=== PATIENT | male | born 1985 | race Caucasian/White ===

== ENCOUNTER 2016-07-19 09:58 | Emergency (ER) | payer OTHER ==
[2016-07-19 10:15] VITALS: BP 149/81
== END 2016-07-19 11:24 | disposition left against medical advice (07) ==
LOC: UCCORT 09:58
DX: R09.81 Nasal congestion (principal); Z53.21 Procedure and treatment not carried out due to patient leaving prior to being seen by health care provider

== ENCOUNTER 2016-07-19 15:27 | Emergency (ER) | payer OTHER ==
[2016-07-19 17:42] VITALS: BP 132/72
--- NOTE | 2016-07-19 18:20 | UC ---
Throat Pain/Nasal Jace HPI - HPI Summary HPI Summary: complaint of nasal congestion and cough that started 2 weeks ago productive cough frequent sinus pressure and headaches pain in his left ear denies sore throat fever and chills took some aleve and sudafed withoutnrelief - History of Current Complaint Chief Complaint: UCGeneralIllness Stated Complaint: COUGH,LUNGS Time Seen by Provider: 07/19/16 18:14 Hx Obtained From: Patient - Allergies/Home Medications Allergies/Adverse Reactions: Allergies Allergy/AdvReac Type Severity Reaction Status Date / Time Metoclopramide [From Reglan] Allergy Intermediate Itching Verified 07/19/16 17: 42 PMH/Surg Hx/FS Hx/Imm Hx Previously Healthy: Yes - Surgical History Surgical History: Yes Surgery Procedure, Year, and Place: appy - Family History Known Family History: Negative: Cardiac Disease, Hypertension, Diabetes - Social History Occupation: Employed Full-time Lives: With Family Alcohol Use: Occasionally Substance Use Type: None Smoking Status (MU): Heavy Every Day Tobacco Smoker Type: Cigarettes Amount Used/How Often: 1 PPD Length of Time of Smoking/Using Tobacco: 15 years Review of Systems Constitutional: Negative Skin: Negative Eyes: Negative ENT: Nasal Discharge Respiratory: Cough Cardiovascular: Negative Gastrointestinal: Negative Genitourinary: Negative Motor: Negative Neurovascular: Negative Musculoskeletal: Negative Neurological: Headache Psychological: Negative All Other Systems Reviewed And Are Negative: Yes Physical Exam Triage Information Reviewed: Yes Appearance: Well-Appearing, No Pain Distress, Well-Nourished Vital Signs: Initial Vital Signs Temp 98.6 F 07/19/16 17:36 Pulse 83 07/19/16 17:36 Resp 16 07/19/16 17:36 BP 132/72 07/19/16 17:36 Pulse Ox 100 07/19/16 17:36 Vital Signs Reviewed: Yes Eyes: Positive: Conjunctiva Clear ENT: Positive: Pharyngeal erythema, Nasal congestion, Nasal drainage, TM bulging , Other: - frontal and maxillary sinus tenderness. Negative: TM red Neck: Positive: No Lymphadenopathy Respiratory: Positive: Lungs clear, Normal breath sounds, No respiratory distress, No accessory muscle use Cardiovascular: Positive: RRR, No Murmur, Pulses Normal Abdomen Description: Positive: Nontender, Soft Bowel Sounds: Positive: Present Musculoskeletal Exam: Normal Neurological: Positive: Alert Psychological Exam: Normal Skin Exam: Normal Throat Pain/Nasal Course/Dx - Differential Dx/Diagnosis Differential Diagnosis/HQI/PQRI: Otitis Media, Sinusitis Provider Diagnoses: sinusitis Discharge - Discharge Plan Condition: Stable Disposition: HOME Prescriptions: Clarithromycin TAB* [Biaxin 500 MG TAB*] 500 mg PO BID #20 tab Patient Education Materials: Sinusitis (ED) Referrals: Reid Singh MD [Primary Care Provider] - Additional Instructions: SINUSITIS What is Sinusitis? Sinusitis is inflammation or infection of the lining of the sinuses behind the bones in your cheeks or forehead. Sinusitis may occur following a common cold, flu, or other infection; allergies; a tooth infection that spreads to the sinuses; swimming in contaminated water; pressure changes in airplanes at high altitudes; violent sneezing or nose blowing or smoking or breathing other peoples smoke. Symptoms Might Include: Nasal Congestion Sneezing Watery eyes, eye irritation, or eye itching Headaches Pressure in the cheeks Wheezing Trouble smelling Sore throat and coughing may occur Treatment Recommendations: Take medicines as prescribed until completely gone. Drink plenty of fluids. Use saline nose spray to thin the mucous and help the sinuses drain. Use a vaporizer or humidifier. Apply warm compresses to the face or forehead several times a day for 10 to 20 minutes. Call Your Doctor or Return Here IF: Your pain increases during treatment. You develop a high temperature. You develop unusual swelling around the eyes. You have difficulty with your vision. You develop a severe headache, earache, or toothache. You develop increased fever or fever that does not respond to medication such as Tylenol?. You have difficulty breathing or catching your breath. You begin to have any other new symptoms that worry you. Your blood pressure is pre-hypertensive reading. Please contact your primary care provider within 1 day -4 weeks for further evaluation
[2016-07-19] MEDS ORDERED: Clarithromycin TAB* 500 MG PO ONE (18:27)
== END 2016-07-19 18:32 | disposition home or self-care (01) ==
LOC: UCCORT 15:27
DX: J32.9 Chronic sinusitis, unspecified (principal); Z88.8 Allergy status to other drugs, medicaments and biological substances; F17.210 Nicotine dependence, cigarettes, uncomplicated
CPT/HCPCS: 99212; A9270-GY; G0463

== ENCOUNTER 2017-01-03 11:10 | Emergency (ER) | payer OTHER ==
[2017-01-03 11:47] VITALS: BP 146/65
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
--- NOTE | 2017-01-03 13:17 | RAD ---
INDICATION: Trauma. COMPARISON: None. TECHNIQUE: 4 views of the right hand and 3 views of the right wrist were obtained. FINDINGS: The adequately corticated bones are in normal alignment. No significant focal osseous abnormality or fracture is seen. Joint spaces appear maintained. IMPRESSION: No radiographically apparent fracture of the right hand or wrist. If the patient's symptoms persist further imaging is advised.
== END 2017-01-03 13:30 | disposition home or self-care (01) ==
LOC: UCEAST 11:10
DX: M79.641 Pain in right hand (principal); F17.210 Nicotine dependence, cigarettes, uncomplicated; M79.89 Other specified soft tissue disorders
CPT/HCPCS: 99213; G0463

== ENCOUNTER 2017-03-25 22:44 | Emergency (ER) | payer OTHER ==
[2017-03-26 00:45] LABS: ABS Basophils 0 10^3/ul (0-0.2); ABS Eosinophils 0.2 10^3/ul (0-0.6); ABS Lymphocytes 2.3 10^3/ul (1.0-4.8); ABS Monocytes 0.8 10^3/ul (0-0.8); ABS Neutrophils 3.7 10^3/ul (1.5-7.7); ABS Nucleated RBC 0 10^3/ul; Hematocrit 46 % (42-52); Hemoglobin 15.8 g/dl (14.0-18.0); Lymphocyte % 32.4 % (25-47); Mean Corpuscular HGB Conc 34 g/dl (31-36); Mean Corpuscular Hemoglobin 32 pg (27-31); Mean Corpuscular Volume 94 fL (80-94); Mean Platelet Volume 8 um3 (7.4-10.4); Nucleated Red Blood Cells % 0; Platelet Count 245 10^3/ul (150-450); Red Cell Distribution Width 14 % (10.5-15)
[2017-03-26] MEDS ORDERED: Mouth Piece, Nicotine* 1 EACH CARTRIDGE ONE (01:22)
[2017-03-26] MEDS ORDERED: Mouth Piece, Nicotine* 1 EACH CARTRIDGE INH PRN ×2 (01:22)
[2017-03-26] MEDS ORDERED: Nicotine Inhaler* 10 MG AMP INH PRN (01:22)
[2017-03-26] MEDS ORDERED: Nicotine Inhaler* 10 MG AMP ONE (01:22)
[2017-03-26 02:16] LABS: Urine Appearance Clear; Urine Color Straw
[2017-03-26 02:18] LABS: Urine Ketones Negative (Negative); Urine Protein N (Negative); Urine Urobilinogen Negative (Negative)
[2017-03-26 02:19] LABS: Urine Blood N (Negative)
--- NOTE | 2017-03-26 02:21 | ED ---
Psychiatric Complaint - HPI Summary HPI Summary: Patient presents to the ED with ETOH intox and thoughts of suicide. Denies HI or self harm. Endorses marijuana use. Pt to ED via police on from home d/ t suicidal ideation stating that pt left home with 2 long rifles. pt was distraught upon arrival stating that his "girlfriend told him she was leaving him and he would no longer be allowed to participate in the kids lives" pt states that he has raised the children but is not the biological father and has no rights to the children. pt is tearful and states that he was suicidal. pt was provided with paper scrubs. pt requested to speak with the Denn[facility]. Francisco with spiritual care was phoned and did come in to speak with pt. pt states that he felt a lot better after talking to francisco. pt was provided with a sandwich and drink. Denies any pain including chest pain and SOB. - History Of Current Complaint Chief Complaint: EDMentalHealth Time Seen by Provider: 03/25/17 23:02 Hx Obtained From: Patient Onset/Duration: Gradual Onset Timing: Constant Severity Initially: Moderate Severity Currently: Moderate Character: Depressed Aggravating Factor(s): Recent Stress, Alcohol Use Alleviating Factor(s): Nothing Associated Signs And Symptoms: Positive: Negative - Risk Factor(s) Completed Suicide Risk Factors: Male, White Egyptian - Allergies/Home Medications Allergies/Adverse Reactions: Allergies Allergy/AdvReac Type Severity Reaction Status Date / Time Metoclopramide [From Reglan] Allergy Intermediate Itching Verified 01/03/17 11: 41 PMH/Surg Hx/FS Hx/Imm Hx Previously Healthy: Yes - Surgical History Surgery Procedure, Year, and Place: appy - Immunization History Hx Pertussis Vaccination: No Immunizations Up to Date: Unable to Obtain/Confirm Infectious Disease History: No Infectious Disease History: Reports: Hx Hepatitis - Hep-c: states no longer has Denies: Traveled Outside the [place] in Last 30 Days - Family History Known Family History: Negative: Cardiac Disease, Hypertension, Diabetes - Social History Occupation: Employed Full-time Lives: With Family Alcohol Use: Occasionally Hx Substance Use: No Substance Use Type: Reports: None Hx Tobacco Use: Yes Smoking Status (MU): Heavy Every Day Tobacco Smoker Type: Cigarettes Amount Used/How Often: 1 PPD Length of Time of Smoking/Using Tobacco: 15 years Review of Systems Constitutional: Negative Negative: Fever, Chills, Fatigue Eyes: Negative ENT: Negative Respiratory: Negative Gastrointestinal: Negative Positive: no symptoms reported, see HPI Musculoskeletal: Negative Neurological: Negative Positive: Depressed All Other Systems Reviewed And Are Negative: Yes Physical Exam Triage Information Reviewed: Yes Vital Signs On Initial Exam: Initial Vitals Temp Pulse Resp BP Pulse Ox 97.6 F 74 16 148/109 99 03/25/17 22:52 03/25/17 22:52 03/25/17 22:52 03/25/17 22:52 03/25/17 22:52 Vital Signs Reviewed: Yes Appearance: Positive: Well-Appearing, Well-Nourished Skin: Positive: Warm, Skin Color Reflects Adequate Perfusion Head/Face: Positive: Normal Head/Face Inspection Eyes: Positive: EOMI, IVONNE, Conjunctiva Clear Neck: Positive: Supple, No Lymphadenopathy Respiratory/Lung Sounds: Positive: Clear to Auscultation, Breath Sounds Present Cardiovascular: Positive: RRR, Pulses are Symmetrical in both Upper and Lower Extremities Musculoskeletal: Positive: Strength/ROM Intact Neurological: Positive: Normal, Sensory/Motor Intact, Speech Normal Psychiatric: Positive: Depressed - Dorys Coma Scale Coma Scale Total: 15 Diagnostics - Vital Signs Vital Signs Temp Pulse Resp BP Pulse Ox 03/25/17 22:52 97.6 F 74 16 148/109 99 - Laboratory Lab Results: Lab Results 03/25/17 03/25/17 03/25/17 Range/Units 23:19 23:19 23:38 WBC (3.5-10.8) 10^3/ul RBC (4.0-5.4) 10^6/ul Hgb (14.0-18.0) g/dl Hct (42-52) % MCV (80-94) fL MCH (27-31) pg MCHC (31-36) g/dl RDW (10.5-15) % Plt Count (150-450) 10^3/ul MPV (7.4-10.4) um3 Neut % (Auto) (38-83) % Lymph % (Auto) (25-47) % [place] % (Auto) (1-9) % Eos % (Auto) (0-6) % Baso % (Auto) (0-2) % Absolute Neuts (auto) (1.5-7.7) 10^3/ul Absolute Lymphs (auto) (1.0-4.8) 10^3/ul Absolute Monos (auto) (0-0.8) 10^3/ul Absolute Eos (auto) (0-0.6) 10^3/ul Absolute Basos (auto) (0-0.2) 10^3/ul Absolute Nucleated RBC 10^3/ul Nucleated RBC % Sodium 137 (133-145) mmol/L Potassium 4.0 (3.5-5.0) mmol/L Chloride 106 (101-111) mmol/L Carbon Dioxide 22 (22-32) mmol/L Anion Gap 9 (2-11) mmol/L BUN 20 (6-24) mg/dL Creatinine 0.91 (0.67-1.17) mg/dL Est GFR ( Amer) 123.4 (>60) Est GFR (Non-Af Amer) 96.0 (>60) BUN/Creatinine Ratio 22.0 H (8-20) Glucose 102 H (70-100) mg/dL Calcium 9.6 (8.6-10.3) mg/dL Total Bilirubin 0.30 (0.2-1.0) mg/dL AST 21 (13-39) U/L ALT 17 (7-52) U/L Alkaline Phosphatase 46 (34-104) U/L Total Protein 8.0 (6.4-8.9) g/dL Albumin 4.9 (3.2-5.2) g/dL Globulin 3.1 (2-4) g/dL Albumin/Globulin Ratio 1.6 (1-3) TSH 2.32 (0.34-5.60) mcIU/mL Urine Color Straw Urine Appearance Clear Urine pH 5 (5-9) Ur Specific [place] 1.000 L (1.010-1.030) Urine Protein N (Negative) Urine Ketones Negative (Negative) Urine Blood N (Negative) Urine Nitrate N (Negative) Urine Bilirubin Negative (Negative) Urine Urobilinogen Negative (Negative) Ur Leukocyte Esterase Negative (Negative) Urine WBC (Auto) Trace(0-5/hpf) (Absent) Urine RBC (Auto) Trace(0-2/hpf) (Absent) Urine Bacteria Absent (Absent) Urine Glucose N (Negative) Urine Ascorbic Acid N (Negative) Salicylates < 2.50 (<30) mg/dL Urine Opiates Screen None detected (None Detect) Acetaminophen < 15 mcg/mL Ur Barbiturates Screen None detected (None Detect) Ur Phencyclidine Scrn None detected (None Detect) Ur Amphetamines Screen None detected (None Detect) U Benzodiazepines Scrn None detected (None Detect) Urine Cocaine Screen None detected (None Detect) U Cannabinoids Screen Presumptive positive H (None Detect) Serum Alcohol 233 H (<10) mg/dL 03/25/17 Range/Units 23:38 WBC 7.0 (3.5-10.8) 10^3/ul RBC 4.90 (4.0-5.4) 10^6/ul Hgb 15.8 (14.0-18.0) g/dl Hct 46 (42-52) % MCV 94 (80-94) fL MCH 32 H (27-31) pg MCHC 34 (31-36) g/dl RDW 14 (10.5-15) % Plt Count 245 (150-450) 10^3/ul MPV 8 (7.4-10.4) um3 Neut % (Auto) 52.8 (38-83) % Lymph % (Auto) 32.4 (25-47) % [place] % (Auto) 11.2 H (1-9) % Eos % (Auto) 3.0 (0-6) % Baso % (Auto) 0.6 (0-2) % Absolute Neuts (auto) 3.7 (1.5-7.7) 10^3/ul Absolute Lymphs (auto) 2.3 (1.0-4.8) 10^3/ul Absolute Monos (auto) 0.8 (0-0.8) 10^3/ul Absolute Eos (auto) 0.2 (0-0.6) 10^3/ul Absolute Basos (auto) 0 (0-0.2) 10^3/ul Absolute Nucleated RBC 0 10^3/ul Nucleated RBC % 0 Sodium (133-145) mmol/L Potassium (3.5-5.0) mmol/L Chloride (101-111) mmol/L Carbon Dioxide (22-32) mmol/L Anion Gap (2-11) mmol/L BUN (6-24) mg/dL Creatinine (0.67-1.17) mg/dL Est GFR ( Amer) (>60) Est GFR (Non-Af Amer) (>60) BUN/Creatinine Ratio (8-20) Glucose (70-100) mg/dL Calcium (8.6-10.3) mg/dL Total Bilirubin (0.2-1.0) mg/dL AST (13-39) U/L ALT (7-52) U/L Alkaline Phosphatase (34-104) U/L Total Protein (6.4-8.9) g/dL Albumin (3.2-5.2) g/dL Globulin (2-4) g/dL Albumin/Globulin Ratio (1-3) TSH (0.34-5.60) mcIU/mL Urine Color Urine Appearance Urine pH (5-9) Ur Specific [place] (1.010-1.030) Urine Protein (Negative) Urine Ketones (Negative) Urine Blood (Negative) Urine Nitrate (Negative) Urine Bilirubin (Negative) Urine Urobilinogen (Negative) Ur Leukocyte Esterase (Negative) Urine WBC (Auto) (Absent) Urine RBC (Auto) (Absent) Urine Bacteria (Absent) Urine Glucose (Negative) Urine Ascorbic Acid (Negative) Salicylates (<30) mg/dL Urine Opiates Screen (None Detect) Acetaminophen mcg/mL Ur Barbiturates Screen (None Detect) Ur Phencyclidine Scrn (None Detect) Ur Amphetamines Screen (None Detect) U Benzodiazepines Scrn (None Detect) Urine Cocaine Screen (None Detect) U Cannabinoids Screen (None Detect) Serum Alcohol (<10) mg/dL Result Diagrams: 03/25/17 23:38 03/25/17 23:38 Lab Statement: Any lab studies that have been ordered have been reviewed, and results considered in the medical decision making process. Course/Dx - Course Course Of Treatment: Patient remains tearful on exam and is requesting to speak with country printer apprentice. Denies other pain or symptoms. Notes to worsening depression and thoughts of suicide. He is cleared for MHU at 4:30am when clinically sober. Alcohol at 233. BP noted to be high on arrival, but decreased to 140/ 98 on manual. - Differential Dx/Clinical Impression Differential Diagnosis/HQI/PQRI: Positive: Depression, Other - ETOH Provider Diagnosis: ETOH abuse, Depressed Discharge - Discharge Plan Condition: Stable Disposition: HOME Patient Education Materials: Depression (ED), Abuse of Alcohol (ED), Suicide Prevention for Adults (ED) Referrals: [facility] [place] [Other] (Please consider going during walk in hours and request an intake appointment, for support with alcohol dependence.) Reid Singh MD [Primary Care Provider] -
[2017-03-26 08:26] VITALS: BP 141/80
== END 2017-03-26 06:45 | disposition home or self-care (01) ==
LOC: ED 22:44
DX: F10.129 Alcohol abuse with intoxication, unspecified (principal); F32.9 Major depressive disorder, single episode, unspecified; F17.210 Nicotine dependence, cigarettes, uncomplicated; Y90.7 Blood alcohol level of 200-239 mg/100 ml
CPT/HCPCS: 36415; 80053; 80307; 80320; 80329; 81003; 84443; 85025; 99284; A9270-GY; G0480

== ENCOUNTER 2017-07-26 02:25 | Emergency (ER) | payer SELFPAY ==
[2017-07-26 03:20] LABS: Urine Appearance Clear; Urine Blood Negative (Negative); Urine Color Straw; Urine Ketones Negative (Negative); Urine Protein Negative (Negative); Urine Specific Gravity 1.008 (1.010-1.030); Urine Urobilinogen Negative (Negative)
[2017-07-26] MEDS ORDERED: Ketorolac INJ* 60 MG/2 ML VIAL IM ONE (04:35)
[2017-07-26] MEDS ORDERED: Dexamethasone IV* 4 MG/ML 1 ML (4 MG) IM ONE (04:35)
[2017-07-26 05:36] VITALS: BP 110/71
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
--- NOTE | 2017-07-26 10:17 | RAD ---
Indication: Neck injury after fall CT of the cervical spine was obtained in the axial plane. Sagittal and coronal reconstructed images were obtained. Skull base demonstrates no fracture. Mastoid air cells are well aerated. The C1 ring is intact. The vertebral bodies appear normal in height. No compression fracture is noted. There is straightening of the normal lordosis. No focal protrusion is identified. No central or foraminal stenosis is noted. The lung apices demonstrates emphysematous bullae. IMPRESSION: No fracture of the cervical spine is noted. Mild straightening of the normal lordosis.
--- NOTE | 2017-07-26 10:21 | RAD ---
Indication: Back pain after fall. CT of the lumbar spine was obtained in the axial plane. Sagittal and coronal reconstructed images were obtained. The vertebral bodies appear normal in height. No evidence of fracture is noted. Disc spaces all well-preserved. At L4-L5 there is suggestion of broad-based protrusion. This flattens the thecal sac. L5-S1 there is broad-based protrusion flattening the epidural fat cul-de-sac. At L1-L2, L2-L3 and L3-L4 the disc space is unremarkable. IMPRESSION: NO FRACTURE OF THE LUMBAR SPINE IS NOTED. THERE IS LIKELY BROAD-BASED PROTRUSION AT L4-L5 AND L5-S1.
--- NOTE | 2017-07-26 10:22 | RAD ---
Indication: Fall, head injury. CT of the brain was performed without IV contrast. Ventricular structures are midline. No midline shift is noted. The extraction spaces are unremarkable. There is no evidence of intracranial mass or hemorrhage. No other high or low density lesions identified. Arachnoid cyst is noted in the left posterior fossa. Mastoid air cells and paranasal sinuses are otherwise unremarkable. IMPRESSION: No intracranial mass or hemorrhage is noted.
== END 2017-07-26 06:02 | disposition home or self-care (01) ==
LOC: ED 02:25
DX: S39.92XA Unspecified injury of lower back, initial encounter (principal); W10.9XXA Fall (on) (from) unspecified stairs and steps, initial encounter; Y92.9 Unspecified place or not applicable; G93.0 Cerebral cysts; F17.210 Nicotine dependence, cigarettes, uncomplicated; Z88.8 Allergy status to other drugs, medicaments and biological substances
CPT/HCPCS: 70450; 72125; 72131; 81003; 96372; 99283; J1100; J1885

== ENCOUNTER 2017-09-16 00:47 | Emergency (ER) | payer SELFPAY ==
[2017-09-16 02:10] LABS: ABS Basophils 0.1 10^3/ul (0-0.2); ABS Eosinophils 0.1 10^3/ul (0-0.6); ABS Lymphocytes 1.9 10^3/ul (1.0-4.8); ABS Monocytes 0.8 10^3/ul (0-0.8); ABS Neutrophils 7.8 10^3/ul (1.5-7.7); ABS Nucleated RBC 0 10^3/ul; Eosinophil % 1.4 % (0-6); Hematocrit 47 % (42-52); Hemoglobin 16.5 g/dl (14.0-18.0); Mean Corpuscular HGB Conc 35 g/dl (31-36); Mean Corpuscular Hemoglobin 33 pg (27-31); Mean Corpuscular Volume 94 fL (80-94); Nucleated Red Blood Cells % 0; Platelet Count 256 10^3/ul (150-450); Red Cell Distribution Width 14 % (10.5-15); White Blood Count 10.8 10^3/ul (3.5-10.8)
[2017-09-16] MEDS ORDERED: Mouth Piece, Nicotine* 1 EACH CARTRIDGE INH PRN (02:19)
[2017-09-16] MEDS ORDERED: Nicotine Inhaler* 10 MG AMP INH ONE (02:19)
[2017-09-16] MEDS ORDERED: Mouth Piece, Nicotine* 1 EACH CARTRIDGE ONE (02:22)
[2017-09-16 02:27] LABS: EGFR Non-African American 92.4 (>60)
[2017-09-16] MEDS ORDERED: LORazepam TAB(*) 1 MG ONE ×2 (02:48→02:52)
[2017-09-16] MEDS ORDERED: diPHENhydraMINE PO* 50 MG ONE (02:52)
[2017-09-16] MEDS ORDERED: Haloperidol TAB* 5 MG ONE (02:52)
--- NOTE | 2017-09-16 06:56 | ED ---
Jessee Rubi Tiffany, scribed for Mercedes Pierre MD on 09/16/17 at 0138 . Substance Abuse/Use - HPI Summary HPI Summary: 32 year old M BIB EMS and police 941 to [facility] complains of alcohol intoxication since one hour ago. Symptoms aggravated by nothing. Symptoms alleviated by nothing. Additionally complains of suicidal ideation. Hx ETOH abuse. Hx depression. Not taking medication. - History Of Current Complaint Chief Complaint: EDSubstanceAbuse Stated Complaint: 941 Time Seen by Provider: 09/16/17 00:50 Hx Obtained From: Patient Aggravating Factor(s): Nothing Alleviating Factor(s): Nothing Associated Signs And Symptoms: Other: - suicidal ideation - Allergies/Home Medications Allergies/Adverse Reactions: Allergies Allergy/AdvReac Type Severity Reaction Status Date / Time metoclopramide [From Reglan] Allergy Intermediate Itching Verified 09/16/17 01: 32 Home Medications: Home Medications NK [No Home Medications Reported] 09/16/17 [History Confirmed 09/16/17] PMH/Surg Hx/FS Hx/Imm Hx Previously Healthy: No Endocrine/Hematology History: Denies: Hx Diabetes Cardiovascular History: Denies: Hx Hypertension Musculoskeletal History: Reports: Hx Back Problems - Herniated disc Psychiatric History: Reports: Hx Depression, Hx Substance Abuse - ETOH - Surgical History Surgery Procedure, Year, and Place: appy - Immunization History Date of Tetanus Vaccine: utd Date of Influenza Vaccine: none Infectious Disease History: No Infectious Disease History: Reports: Hx Hepatitis - Hep-c: states no longer has Denies: Traveled Outside the [place] in Last 30 Days - Family History Known Family History: Negative: Cardiac Disease, Hypertension, Diabetes - Social History Alcohol Use: Daily Alcohol Amount: 10 on average or more Hx Substance Use: Yes Substance Use Type: Reports: Marijuana Substance Use Comment - Amount & Last Used: every other day Hx Tobacco Use: Yes Smoking Status (MU): Heavy Every Day Tobacco Smoker Type: Cigarettes Amount Used/How Often: 1 PPD Length of Time of Smoking/Using Tobacco: 15 years Review of Systems Negative: Fever Positive: Other - ETOH intoxication, SI All Other Systems Reviewed And Are Negative: Yes Physical Exam - Summary Physical Exam Summary: VITAL SIGNS: Reviewed. GENERAL: Patient is a well-developed and nourished male who is lying comfortable in the stretcher. Patient is not in any acute respiratory distress. There is the smell of alcohol on his breath. HEAD AND FACE: No signs of trauma. No ecchymosis, hematomas or skull depressions. No sinus tenderness. EYES: PERRLA, EOMI x 2, No injected conjunctiva, no nystagmus. EARS: Hearing grossly intact. Ear canals and tympanic membranes are within normal limits. MOUTH: Oropharynx within normal limits. NECK: Supple, trachea is midline, no adenopathy, no JVD, no carotid bruit, no c- spine tenderness, neck with full ROM. CHEST: Symmetric, no tenderness at palpation LUNGS: Clear to auscultation bilaterally. No wheezing or crackles. CVS: Regular rate and rhythm, S1 and S2 present, no murmurs or gallops appreciated. ABDOMEN: Soft, non-tender. No signs of distention. No rebound no guarding, and no masses palpated. Bowel sounds are normal. EXTREMITIES: FROM in all major joints, no edema, no cyanosis or clubbing. NEURO: Alert and oriented x 3. No acute neurological deficits. Speech is normal and follows commands. SKIN: Dry and warm Triage Information Reviewed: Yes Vital Signs On Initial Exam: Initial Vitals Pulse Pulse Ox 85 97 09/16/17 01:06 09/16/17 01:06 Vital Signs Reviewed: Yes Diagnostics - Vital Signs Vital Signs Temp Pulse Resp BP Pulse Ox 09/16/17 01:16 98.1 F 87 18 149/91 98 09/16/17 01:07 83 135/89 95 09/16/17 01:06 85 97 - Laboratory Result Diagrams: 09/16/17 01:49 09/16/17 01:49 Lab Statement: Any lab studies that have been ordered have been reviewed, and results considered in the medical decision making process. Course/Dx - Course Course Of Treatment: 32 year old M BIB EMS and police 941 to [facility] complains of alcohol intoxication since one hour ago. In ED, patient ran out suddenly, was brought back inside by security. Patient medically sedated. Patient will be signed out to Dr. Vazquez at shift change, awaiting MHE, pending dispo. - Diagnoses Provider Diagnoses: Alcohol intoxication Discharge - Sign-Out/Discharge Documenting (check all that apply): Sign-Out Patient Signing out patient TO: Enrique Vazquez - awaiting MHE, pending dispo - Discharge Plan Condition: Stable Referrals: Reid Singh MD [Primary Care Provider] - The documentation as recorded by the Jessee pardo Tiffany accurately reflects the service I personally performed and the decisions made by me, Mercedes Pierre MD.
[2017-09-16 10:32] VITALS: BP 112/68
--- NOTE | 2017-09-16 15:44 | ED ---
Campos Rubi Angela, scribed for Enrique Vazquez MD on 09/16/17 at 0803 . Progress - Progress Note Progress Note: This pt was signed out by Dr. Pierre, pending disposition, awaiting MHE. Pt had a mental health evaluation and his case was reviewed by Dr. Joe, psychiatrist. It was deemed that the pt can be discharged home with diagnosis of alcohol intoxication. Course/Dx - Diagnoses Provider Diagnoses: Alcohol intoxication Discharge - Sign-Out/Discharge Documenting (check all that apply): Discharge/Admit/Transfer - Discharge, Receiving Sign-Out Receiving patient FROM: Mercedes Pierre - Discharge Plan Condition: Stable Disposition: HOME Patient Education Materials: Alcohol Intoxication (ED) Referrals: [facility] [Outside] - If Needed [facility] [Outside] - If Needed [facility] [Outside] - If Needed Reid Singh MD [Medical Doctor] - - Billing Disposition and Condition Condition: STABLE Disposition: Home The documentation as recorded by the Campos pardo Angela accurately reflects the service I personally performed and the decisions made by , Enrique Vazquez MD.
== END 2017-09-16 10:00 | disposition home or self-care (01) ==
LOC: ED 00:47
DX: F10.129 Alcohol abuse with intoxication, unspecified (principal); F17.210 Nicotine dependence, cigarettes, uncomplicated; R45.851 Suicidal ideations
CPT/HCPCS: 36415; 80053; 80320; 80329; 84443; 85025; 99285; A9270-GY; G0480

== ENCOUNTER → 2017-10-02 23:00 | Emergency (ER) | payer SELFPAY ==
[~2017-10-02 23:00] MED LIST: Haloperidol INJ IV/IM* 5 MG/ML AMP IM ONE; Haloperidol INJ IV/IM* 5 MG/ML AMP ONE; LORazepam INJ* 2 MG/ML 1 ML VIAL IM ONE; LORazepam INJ* 2 MG/ML 1 ML VIAL ONE; Mouth Piece, Nicotine* 1 EACH CARTRIDGE ONE; Nicotine Inhaler* 10 MG AMP ONE
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
[2017-10-03 09:30] VITALS: BP 132/96
== END | disposition home or self-care (01) ==
LOC: ED 23:00
DX: F10.129 Alcohol abuse with intoxication, unspecified (principal); S01.81XA Laceration without foreign body of other part of head, initial encounter; W19.XXXA Unspecified fall, initial encounter; Y93.9 Activity, unspecified; Y92.9 Unspecified place or not applicable; F17.210 Nicotine dependence, cigarettes, uncomplicated
CPT/HCPCS: 12001; 99281; A9270-GY; J1630; J2060

== ENCOUNTER 2019-03-28 14:18 | Emergency (ER) | payer OTHER ==
--- OUTSIDE RECORDS SUMMARY | 2019-03-28 14:57 | XMS REPORT | Continuity of Care Document ---
:1985 External Reference #:[id number] Author Name Rip Hill MD Address [address] [place] [address] Problems Description No Information Available Social History Type Date Description Comments Sex Unknown Tobacco Use Start: Unknown Heavy tobacco smoker (more than 10 cigarettes/day) Smoking Status Reviewed: 02/08/19 Heavy tobacco smoker (more than 10 cigarettes/day) Allergies, Adverse Reactions, Alerts Active Allergies Reaction Severity Comments Date Reglan 02/08/2019 Medications Description No Active Medications Immunizations Description No Information Available Vital Signs Description No Information Available Results Description No Information Available Procedures Date Code Description Status 02/08/2019 41194 Gonioscopy Completed 02/08/2019 08364 Eye Exam New Patient Comprehensive Completed 02/08/2019 48828 Ophthalmic Ultrasound, Corneal Pachymetry, Completed Unilateral/Bilateral Medical Devices Description No Information Available Encounters Description No Information Available Assessments Date Code Description Provider 02/08/2019 H40.013 Open angle with borderline findings, low risk, Rip Hill MD bilateral Plan of Treatment Future Appointment(s):03/17/2019 3:30 pm - Rip Hill MD at [email or web address]/ 26/2019 - Rip Hill MDH40.013 Open angle with borderline findings, low risk , bilateralComments:- based upon c/d ratio- angle open on gonioscopy- pachymetry : 550, 548- recommend iop check, vf 24-2, oct rnfl 4-6 weeks; LONG - discussed glaucoma, potential for vision loss, potential need for iop-lowering- peripheral retina without signs of retinal break or tear with scleral depression - reviewed signs, symptoms of rd and need for evalFollow up:recommend iop check , vf 24-2, oct rnfl 4-6 weeks; LONG Functional Status Description No Information Available Mental Status Description No Information Available Referrals Description No Information Available
--- NOTE | 2019-03-28 15:04 | UC ---
Back Pain HPI - HPI Summary HPI Summary: 34 y/o male presents to the urgent care c/o acute lower back since Thursday. Pt reports Hx of herniated disc at L5-S1 and arachnoid cyst which was Dx in 2018. Pt states he sometimes experiences this lower back and gets better w / Ibuprofen. He states she was walking and did and sudden movement. This morning he woke up w/ back spasm. He request Flexeril which he has Rx in the past and usually helps. Pain is 8/10 w/ certain movements and radiating to the left hip and left thigh w/ mild tingling sensation at times. Pain is better laying down or sitting. Pt took this morning Ibuprofen PO and then before coming here took a Naproxen PO. Pt states he was advised to f/u w/ a neurosurgeon when he was Dx w/ the herniated disc, but he hasn't done it since his father had similar Dx and then surgery and is not doing well after the surgery. 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 Pt denies fever, fecal or urinary incontinence, weakness, urinary symptoms, flank pain, saddle anesthesia, abdominal pain, SOB, chest pain , EUBANKS, dizziness, N/V/D. - History of Current Complaint Stated Complaint: BACK PAIN Time Seen by Provider: 03/28/19 15:02 Hx Obtained From: Patient Onset/Duration: Gradual Onset, Lasting Days - 3 days, Still Present Timing: Constant Severity Initially: Mild Severity Currently: Moderate Pain Intensity: 8 - w/ movement Pain Scale Used: 0-10 Numeric Back Pain: Is Discrete @ - lower back pain, Radiates To - left hip Character: Sharp - w/ movement, Spasmodic Aggravating Factor(s): Movement, Lifting, Bending Alleviating Factor(s): Rest, OTC Meds - Ibuprofen PO/Naproxen PO Associated Signs And Symptoms: Positive: Negative. Negative: Swelling, Numbness , Flank Pain, Bladder Incontinence, Bowel Incontinence, Weight Loss, Pain with Weight Bearing Related History: Similar Episode Dx As - herniated disc at the L4-L5 - Risk Factors AAA Risk Factors: Negative TAD Risk Factors: Negative Cauda Equina Risk Factors: Negative Epidural Abscess Risk Factors: Negative - Allergies/Home Medications Allergies/Adverse Reactions: Allergies Allergy/AdvReac Type Severity Reaction Status Date / Time metoclopramide [From Reglan] Allergy Intermediate Itching Verified 03/28/19 15: 00 PMH/Surg Hx/FS Hx/Imm Hx Previously Healthy: Yes Other Neurological History: herniated discs at lower back - Surgical History Surgical History: Yes Surgery Procedure, Year, and Place: appy - Family History Known Family History: Positive: Hypertension Negative: Cardiac Disease, Diabetes Family History: breast cancer, colon cancer - Social History Occupation: Employed Full-time Lives: With Family Alcohol Use: Daily Alcohol Amount: 10 on average or more Substance Use Type: Marijuana Substance Use Comment - Amount & Last Used: every other day Smoking Status (MU): Heavy Every Day Tobacco Smoker Type: Cigarettes Amount Used/How Often: 1 PPD Length of Time of Smoking/Using Tobacco: 15 years Review of Systems All Other Systems Reviewed And Are Negative: Yes Constitutional: Positive: Negative Skin: Positive: Negative Eyes: Positive: Negative ENT: Positive: Negative Respiratory: Positive: Negative Cardiovascular: Positive: Negative Gastrointestinal: Positive: Negative Genitourinary: Positive: Negative Motor: Positive: Negative Neurovascular: Positive: Negative Musculoskeletal: Positive: Decreased ROM - lower back, Other: - lower back s/p heavy lifting Neurological: Positive: Negative Psychological: Positive: Negative Is Patient Immunocompromised?: No Physical Exam - Summary Physical Exam Summary: Vital Signs Reviewed: Yes Appearance: Well-Appearing, Well-Nourished, obese male sitting in the examining table w/o any apparent distress. Eyes: Positive: Conjunctiva Clear - PERRLA, EOMI. ENT: Positive: Normal ENT inspection, Hearing grossly normal, Pharynx normal, TMs normal, Uvula midline Neck: Positive: Supple, Nontender, No Lymphadenopathy Respiratory: Positive: Chest non-tender, Lungs clear, Normal breath sounds, No respiratory distress Cardiovascular: Positive: RRR, No Murmur, Pulses Normal, Brisk Capillary Refill Abdomen Description: Positive: Nontender, No Organomegaly, Soft. Negative: CVA Tenderness (R), CVA Tenderness (L) Bowel Sounds: Positive: Present Musculoskeletal: Positive: Strength Intact, BACK: Patient walked slowly into the urgent care room with symmetric ambulation, No signs of limping, antalgic, able to bear weight. No signs of trauma, No masses palpated. Point tenderness at the level of L4-S1 w/ left side paraspinal muscle tenderness and spasm at the same level, No CVAT, no flank ecchymosis . No sacroiliac notch tenderness, No saddle anesthesia.ROM: limited due to pain, Straight Leg Raise: negative. Patellar reflexes: brisk, symmetric Muscle strength lower extremities. Dorsiflexion/ plantar flexion of ankles. Heel/ toe walk. Lower extremities: Femoral, popliteal, posterior tibial, and dorsalis pedis pulses WNL. Pt refuse rectal exam Neurological: Positive: Alert, Muscle Tone Normal Psychological Exam: Normal Skin Exam: Normal Triage Information Reviewed: Yes Back Pain Course/Dx - Course Course Of Treatment: 34 y/o male presents to the urgent care c/o acute lower back since Thursday. Pt reports Hx of herniated disc at L5-S1 and arachnoid cyst which was Dx in 2018. Pt states he sometimes experiences this lower back and gets better w / Ibuprofen. He states she was walking and did and sudden movement. This morning he woke up w/ back spasm. He request Flexeril which he has Rx in the past and usually helps. Pain is 8/10 w/ certain movements and radiating to the left hip and left thigh w/ mild tingling sensation at times. Pain is better laying down or sitting. Pt took this morning Ibuprofen PO and then before coming here took a Naproxen PO. Pt states he was advised to f/u w/ a neurosurgeon when he was Dx w/ the herniated disc, but he hasn't done it since his father had similar Dx and then surgery and is not doing well after the surgery. 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 Pt denies fever, fecal or urinary incontinence, weakness, urinary symptoms, flank pain, saddle anesthesia, abdominal pain, SOB, chest pain , EUBANKS, dizziness, N/V/D. Hx obtained. Pt is hemodynamically stable, VS:WNL, no focal neurological deficits. Positive: Point tenderness at the level of L4-S1 w / left side paraspinal muscle tenderness and spasm at the same level, No CVAT, no flank ecchymosis . Lumbar Spinal CT done on 07/2017 was reviewed, impression herniated discs at L4-L5 and L5-S1. Pt w/ broad herniated disc Pt Rx Medrol dose yehuda PO, and flexeril PO Patient was strongly advised to f/u w/ Neurosurgeon Dr Dimopoulos as soon as possible for further management on his Herniated discs since he has not f/u as advised in 2018. Pt explained the importance to f/u w/ neurosurgeon and the risk of not doing so. Patient understands and agrees. Patient is able to ambulate freely w/o aid or limp. Plan of care was discussed with the patient and patient understands and agrees. All questions were answered at patient satisfaction. Pt left clinic hemodynamically stable. - Differential Dx/Diagnosis Differential Diagnosis/HQI/PQRI: Arthritis, Compressive Cord Syndrome, Fracture , Herniated Disc, Renal Colic, Strain, Sprain Provider Diagnosis: Lower back pain, Herniated intervertebral disc of lumbar spine, Muscle spasm Discharge ED - Sign-Out/Discharge Documenting (check all that apply): Patient Departure - d/c home All imaging exams completed and their final reports reviewed: No Studies - Discharge Plan Condition: Stable Disposition: HOME Prescriptions: Cyclobenzaprine TAB* [Flexeril 10 MG TAB*] 10 mg PO TID PRN #21 tab PRN Reason: Spasms - Back methylPREDNISolone [Medrol Dosepak 4 MG*] 4 mg PO .SEE YEHUDA INSTRUCTION #1 yehuda Patient Education Materials: Lumbar Disc Herniation (ED), Muscle Spasm (ED) Referrals: [facility] REFERR[facility] [Outside] - 3 Days Nereida Gómez MD [Medical Doctor] - 3 Days Dede Maravilla Ae, RN [Registered Nurse] - 3 Days Additional Instructions: 1- Please take Ibuprofen PO 800mg q6-8hrs prn as directed after meals for pain. alternate w/ Tylenol PO if pain becomes severe. Take Medrol dose yehuda as directed to alleviate symptoms 2- Take Flexeril PO as directed for muscle spasm. Please do not drive while taking the medication. 3- Avoid strenuous exercise or heavy lifting. Please wear a back support 4- Please call Spinal Nurse Navigator: Ana Maravilla: [phone] or F/U w/ Neurosurgeon Dalia for further management of your Herniated Disc on your lower back.. - Billing Disposition and Condition Condition: STABLE Disposition: Home
[2019-03-28 15:07] VITALS: BP 138/87
== END 2019-03-28 15:39 | disposition home or self-care (01) ==
LOC: UCCORT 14:18
DX: M51.26 Other intervertebral disc displacement, lumbar region (principal); M54.5 Low back pain; M62.838 Other muscle spasm; Z88.8 Allergy status to other drugs, medicaments and biological substances; F17.210 Nicotine dependence, cigarettes, uncomplicated
CPT/HCPCS: 99212; G0463